=== PATIENT | female | born 1995 | race Caucasian/White ===

== ENCOUNTER 2018-10-21 22:10 | Inpatient (IN) | payer OTHER ==
[2018-10-21 23:46] LABS: ADD UMIC YES; UR ASCORBIC ACID NEGATIVE (NEGATIVE); UR BACTERIA FEW /HPF (NONE SEEN); UR BILIRUBIN (Dip) NEGATIVE (NEGATIVE); UR BLOOD (Dip) 2+ mg/dL (NEGATIVE); UR CLARITY SLIGHTLY CLOUDY (CLEAR); UR COLOR YELLOW (YELLOW); UR GLUCOSE (Dip) 1+ mg/dL (NEGATIVE); UR KETONES (Dip) NEGATIVE (NEGATIVE); UR LEUKOCYTE ESTERASE (Dip) TRACE Leu/ul (NEGATIVE); UR NITRITE (Dip) NEGATIVE (NEGATIVE); UR RBC 2 /HPF (0-5); UR SPECIFIC GRAVITY (Dip) 1.011 (1.003-1.030); UR SQUAMOUS EPITHELIAL CELL FEW /HPF (FEW); UR TOTAL PROTEIN (Dip) NEGATIVE (NEGATIVE); UR UROBILINOGEN (Dip) NEGATIVE (NEGATIVE); UR WBC 4 /HPF (0-5)
[2018-10-22] MEDS ORDERED: OXYTOCIN 30 UNITS/LR 500 ML IV ×2 (02:00→14:30)
[2018-10-22] MEDS ORDERED: CARBOPROST 250 MCG INJ IM ×2 (02:00→14:30)
[2018-10-22] MEDS ORDERED: MISOPROSTOL 200 MCG TAB PR ×2 (02:00→14:30)
[2018-10-22] MEDS ORDERED: METHYLERGONOVINE 0.2 MG INJ IM ×2 (02:00→14:30)
[2018-10-22 02:35] LABS: ADD MAN DIFF? NO
[2018-10-22 02:38] LABS: BASOPHILS % 0.3 % (0.0-2.0); EOSINOPHILS # 0.1 10^3/ul (0.0-0.5); EOSINOPHILS % 1.3 % (0.0-7.0); HEMATOCRIT 39.2 % (37.0-47.0); LYMPHOCYTES # 1.9 10^3/ul (0.8-2.9); MEAN CORPUSCULAR HGB CONC 33.2 g/dl (32.0-37.0); MEAN CORPUSCULAR VOLUME 90.5 fl (72.0-104.0); MEAN PLATELET VOLUME 11.1 fl (7.4-10.4); MONOCYTE # 0.7 10^3/ul (0.3-0.9); MONOCYTES % 6.8 % (0.0-13.0); NEUTROPHIL # 7.2 10^3/ul (1.6-7.5); NEUTROPHILS % 71.5 % (30.0-74.0); PLATELET COUNT 206 10^3/UL (140-415); RED BLOOD COUNT 4.33 10^6/ul (4.20-5.40)
[2018-10-22 02:54] LABS: INR 0.86; PROTIME 11.8 Sec (11.9-14.9); PT RATIO 0.9
[2018-10-22 02:55] LABS: PARTIAL THROMBOPLASTIN TIME 26.1 Sec (23.0-35.0)
[2018-10-22 03:34] LABS: HEPATITIS B SURFACE ANTIGEN NEGATIVE (NEGATIVE)
[2018-10-22] MEDS: LACTATED RINGER'S 1,000 ML IV ×6 (06:40→19:13)
[2018-10-22] MEDS ORDERED: FAMOTIDINE 20 MG INJ IV (08:00)
[2018-10-22] MEDS ORDERED: METOCLOPRAMIDE 10 MG INJ IV (08:00)
[2018-10-22] MEDS ORDERED: CITRIC ACID/NA CITRATE 30 ML CUP PO (08:00)
[2018-10-22] MEDS: CITRIC ACID/NA CITRATE 30 ML CUP PO (12:31)
[2018-10-22] MEDS: METOCLOPRAMIDE 10 MG INJ IV (12:32)
[2018-10-22] MEDS: FAMOTIDINE 20 MG INJ IV (12:32)
[2018-10-22] MEDS ORDERED: OXYTOCIN 30 UNITS/LR 500 ML BAG IV (13:08)
[2018-10-22] MEDS ORDERED: morphine SULFATE/PF (10 MG/10 ML) INJ (13:09)
[2018-10-22] MEDS ORDERED: EPHEDrine 25 MG/5 ML SYG (13:22)
[2018-10-22] MEDS ORDERED: PHENYLephrine (100 MCG/ML) 10ML SYG (13:23)
[2018-10-22] MEDS ORDERED: ONDANSETRON 4 MG INJ (13:23)
[2018-10-22] MEDS ORDERED: PROCHLORPERAZINE 10 MG INJ IV (14:00)
[2018-10-22] MEDS ORDERED: ONDANSETRON 4 MG INJ IV ×2 (14:00→17:30)
[2018-10-22] MEDS ORDERED: KETOROLAC 30 MG INJ IV ×2 (14:00→17:30)
[2018-10-22] MEDS ORDERED: DIPHENHYDRAMINE 50 MG INJ IV ×2 (14:00→17:30)
[2018-10-22] MEDS ORDERED: HYDROmorphONE 1 MG/5 ML IV SYRINGE IV ×3 (14:00)
[2018-10-22] MEDS ORDERED: FENTAnyl 50 MCG/ML VIAL IV ×3 (14:00)
[2018-10-22] MEDS ORDERED: MEPERIDINE 25 MG INJ IV (14:00)
[2018-10-22] MEDS: OXYTOCIN 30 UNITS/LR 500 ML IV ×2 (14:20→14:36)
[2018-10-22] MEDS ORDERED: LANOLIN HPA 1 PKT TOP (14:30)
[2018-10-22] MEDS ORDERED: METHYLERGONOVINE 0.2 MG TAB PO (14:30)
[2018-10-22] MEDS: CEFAZOLIN 2 GM/50 ML (PMX) 50 ML IVPB (14:38)
[2018-10-22] MEDS ORDERED: HYDROmorphONE 0.5 MG/0.5 ML SYG IV ×2 (17:30)
[2018-10-22] MEDS ORDERED: ZOLPIDEM 5 MG TAB PO (17:30)
[2018-10-22] MEDS ORDERED: NALOXONE (0.4 MG/ML) INJ IV (17:30)
[2018-10-22 18:08] LABS: RAPID PLASMA REAGIN NONREACTIVE (NR)
[2018-10-22] MEDS: SENNA/DOCUSATE NA (8.6MG/50MG) TAB PO (22:09)
[2018-10-23 09:15] LABS: ADD MAN DIFF? NO
[2018-10-23 09:21] LABS: BASOPHIL # 0.1 10^3/ul (0.0-0.1); BASOPHILS % 0.5 % (0.0-2.0); EOSINOPHILS # 0.1 10^3/ul (0.0-0.5); EOSINOPHILS % 0.4 % (0.0-7.0); HEMATOCRIT 36.7 % (37.0-47.0); HEMOGLOBIN 12.1 g/dl (12.0-16.0); LYMPHOCYTES # 1.1 10^3/ul (0.8-2.9); LYMPHOCYTES % 9.3 % (18.0-55.0); MEAN CORPUSCULAR VOLUME 90.8 fl (72.0-104.0); MEAN PLATELET VOLUME 10.9 fl (7.4-10.4); MONOCYTE # 0.7 10^3/ul (0.3-0.9); MONOCYTES % 6.1 % (0.0-13.0); NEUTROPHIL # 10.1 10^3/ul (1.6-7.5); NEUTROPHILS % 82.9 % (30.0-74.0); PLATELET COUNT 192 10^3/UL (140-415); RED BLOOD COUNT 4.04 10^6/ul (4.20-5.40); RED CELL DISTRIBUTION WIDTH 14.1 % (11.5-14.5)
[2018-10-23 09:21] LABS: WHITE BLOOD COUNT 12.2 10^3/ul (4.8-10.8)
[2018-10-23] MEDS: SENNA/DOCUSATE NA (8.6MG/50MG) TAB PO ×2 (09:24→21:39)
[2018-10-23 09:37] LABS: ANION GAP 8 (5-13); BLOOD UREA NITROGEN 4 mg/dl (7-20); CALCIUM 8.9 mg/dl (8.4-10.2); CARBON DIOXIDE 27 mmol/L (21-31); CHLORIDE 104 mmol/L (97-110); Estimated GFR > 60 mL/min (>60); GLUCOSE 79 mg/dl (70-220); POTASSIUM 3.7 mmol/L (3.5-5.1); SODIUM 139 mmol/L (135-144)
[2018-10-23] MEDS: LACTATED RINGER'S 1,000 ML IV (10:19)
[2018-10-23] MEDS: HYDROCODONE/APAP (5/325) TAB PO (13:02)
[2018-10-23] MEDS: IBUPROFEN 800 MG TAB PO (21:38)
[2018-10-24] MEDS: IBUPROFEN 800 MG TAB PO ×2 (05:29→21:31)
[2018-10-24] MEDS: SENNA/DOCUSATE NA (8.6MG/50MG) TAB PO ×2 (08:58→21:31)
[2018-10-24] MEDS: HYDROCODONE/APAP (5/325) TAB PO (16:42)
[2018-10-25] MEDS: IBUPROFEN 800 MG TAB PO (05:35)
[2018-10-25] MEDS: BISACODYL 10 MG SUPP PR ×2 (06:34→10:00)
[2018-10-25] MEDS: MAGNESIUM HYDROXIDE 30ML CUP PO ×2 (06:34→09:05)
[2018-10-25 08:42] LABS: ADD MAN DIFF? NO
[2018-10-25 08:46] LABS: BASOPHIL # 0.1 10^3/ul (0.0-0.1); BASOPHILS % 0.5 % (0.0-2.0); EOSINOPHILS # 0.4 10^3/ul (0.0-0.5); EOSINOPHILS % 4.3 % (0.0-7.0); HEMATOCRIT 40.1 % (37.0-47.0); HEMOGLOBIN 12.9 g/dl (12.0-16.0); LYMPHOCYTES # 2.2 10^3/ul (0.8-2.9); LYMPHOCYTES % 20.9 % (18.0-55.0); MEAN CORPUSCULAR HEMOGLOBIN 30.2 pg (29.0-33.0); MEAN CORPUSCULAR HGB CONC 32.2 g/dl (32.0-37.0); MEAN CORPUSCULAR VOLUME 93.9 fl (72.0-104.0); MEAN PLATELET VOLUME 10.7 fl (7.4-10.4); MONOCYTE # 0.6 10^3/ul (0.3-0.9); MONOCYTES % 6.1 % (0.0-13.0); NEUTROPHILS % 67.5 % (30.0-74.0); PLATELET COUNT 266 10^3/UL (140-415); RED BLOOD COUNT 4.27 10^6/ul (4.20-5.40); RED CELL DISTRIBUTION WIDTH 14.1 % (11.5-14.5)
[2018-10-25 08:46] LABS: WHITE BLOOD COUNT 10.4 10^3/ul (4.8-10.8)
[2018-10-25] MEDS: SENNA/DOCUSATE NA (8.6MG/50MG) TAB PO (09:00)
[2018-10-25] MEDS: DIPHTH/TET/ACEL PERTUSS (ADULT) 0.5 ML VIAL IM* (09:00)
[2018-10-25] MEDS: MEASLES,MUMPS,RUBELLA VACCINE INJ SC* (09:00)
== END 2018-10-25 16:21 | disposition home or self-care (01) | DRG 788 ==
LOC: OBT 22:10 → L-D 22:13 → PP1 10-22 17:41
PROC: 10D00Z1 Extraction of Products of Conception, Low, Open Approach (ICD-10-PCS; principal; 2018-10-22 09:30)
PROC: 3E033VJ Introduction of Other Hormone into Peripheral Vein, Percutaneous Approach (ICD-10-PCS; 2018-10-22 09:30)
DX: O32.1XX0 Maternal care for breech presentation, not applicable or unspecified (principal); Z3A.38 38 weeks gestation of pregnancy; Z37.0 Single live birth
CPT/HCPCS: 76815; 76818; 80048; 81001; 85025; 85610; 85730; 86592; 86850; 86900; 86901; 87086; 87340; 99464